=== PATIENT | female | born 1985 | race Caucasian/White ===

== ENCOUNTER 2018-11-10 08:53 | Outpatient (CLI) | payer OTHER ==
[2018-11-10 10:27] LABS: ADD UMIC YES; UR AMORPHOUS CRYSTAL FEW /HPF (NONE SEEN); UR ASCORBIC ACID NEGATIVE (NEGATIVE); UR BACTERIA FEW /HPF (NONE SEEN); UR BILIRUBIN (Dip) NEGATIVE (NEGATIVE); UR BLOOD (Dip) 2+ mg/dL (NEGATIVE); UR CLARITY CLOUDY (CLEAR); UR COLOR YELLOW (YELLOW); UR GLUCOSE (Dip) NEGATIVE (NEGATIVE); UR KETONES (Dip) 1+ mg/dL (NEGATIVE); UR LEUKOCYTE ESTERASE (Dip) NEGATIVE Leu/ul (NEGATIVE); UR MUCUS FEW /HPF (NONE SEEN); UR NITRITE (Dip) NEGATIVE (NEGATIVE); UR RBC 1 /HPF (0-5); UR SPECIFIC GRAVITY (Dip) 1.016 (1.003-1.030); UR SQUAMOUS EPITHELIAL CELL FEW /HPF (FEW); UR TOTAL PROTEIN (Dip) NEGATIVE (NEGATIVE); UR UROBILINOGEN (Dip) NEGATIVE (NEGATIVE); UR WBC 3 /HPF (0-5)
[2018-11-10 10:33] LABS: ADD MAN DIFF? NO
[2018-11-10 10:34] LABS: WHITE BLOOD COUNT 8.6 10^3/ul (4.8-10.8)
[2018-11-10 10:34] LABS: BASOPHILS % 0.3 % (0.0-2.0); EOSINOPHILS % 0.2 % (0.0-7.0); HEMATOCRIT 36.5 % (37.0-47.0); HEMOGLOBIN 12.2 g/dl (12.0-16.0); LYMPHOCYTES # 1.5 10^3/ul (0.8-2.9); LYMPHOCYTES % 17.4 % (15.0-51.0); MEAN CORPUSCULAR HGB CONC 33.4 g/dl (32.0-37.0); MEAN CORPUSCULAR VOLUME 89.7 fl (82.0-101.0); MEAN PLATELET VOLUME 9.1 fl (7.4-10.4); MONOCYTE # 0.6 10^3/ul (0.3-0.9); NEUTROPHIL # 6.4 10^3/ul (1.6-7.5); NEUTROPHILS % 74.6 % (39.0-77.0); PLATELET COUNT 268 10^3/UL (140-415); RED BLOOD COUNT 4.07 10^6/ul (4.20-5.40); RED CELL DISTRIBUTION WIDTH 12.8 % (11.5-14.5)
== END 2018-11-10 16:30 | disposition home or self-care (01) ==
LOC: OBT 08:53 → L-D 08:55 → OBT 16:30
DX: O26.853 Spotting complicating pregnancy, third trimester (principal); O09.513 Supervision of elderly primigravida, third trimester; Z3A.30 30 weeks gestation of pregnancy
CPT/HCPCS: 76817; 76818; 81001; 85025; 86850; 86900; 86901; 87070; 87210; 87591

== ENCOUNTER 2018-11-10 19:41 | Outpatient (CLI) | payer OTHER ==
[2018-11-25 17:40] LABS: ADD UMIC YES; UR ASCORBIC ACID NEGATIVE (NEGATIVE); UR BILIRUBIN (Dip) NEGATIVE (NEGATIVE); UR BLOOD (Dip) 2+ mg/dL (NEGATIVE); UR CLARITY SLIGHTLY CLOUDY (CLEAR); UR COLOR YELLOW (YELLOW); UR GLUCOSE (Dip) NEGATIVE (NEGATIVE); UR KETONES (Dip) NEGATIVE (NEGATIVE); UR LEUKOCYTE ESTERASE (Dip) TRACE Leu/ul (NEGATIVE); UR NITRITE (Dip) NEGATIVE (NEGATIVE); UR RBC 1 /HPF (0-5); UR SPECIFIC GRAVITY (Dip) 1.016 (1.003-1.030); UR SQUAMOUS EPITHELIAL CELL FEW /HPF (FEW); UR TOTAL PROTEIN (Dip) NEGATIVE (NEGATIVE); UR UROBILINOGEN (Dip) NEGATIVE (NEGATIVE); UR WBC 5 /HPF (0-5)
== END 2018-11-25 18:45 | disposition home or self-care (01) ==
LOC: OBT 19:41 → L-D 11-25 15:29 → OBT 11-25 18:45
DX: O26.853 Spotting complicating pregnancy, third trimester (principal); O47.03 False labor before 37 completed weeks of gestation, third trimester; O26.893 Other specified pregnancy related conditions, third trimester; R10.2 Pelvic and perineal pain; Z3A.32 32 weeks gestation of pregnancy
CPT/HCPCS: 76817; 76818; 81001; 87086

== ENCOUNTER 2018-12-07 09:34 | Inpatient (IN) | payer OTHER ==
[2018-12-07 10:58] LABS: ADD UMIC YES; UR ASCORBIC ACID NEGATIVE (NEGATIVE); UR BACTERIA FEW /HPF (NONE SEEN); UR BILIRUBIN (Dip) NEGATIVE (NEGATIVE); UR BLOOD (Dip) 3+ mg/dL (NEGATIVE); UR CLARITY SLIGHTLY CLOUDY (CLEAR); UR COLOR YELLOW (YELLOW); UR GLUCOSE (Dip) NEGATIVE (NEGATIVE); UR KETONES (Dip) 1+ mg/dL (NEGATIVE); UR LEUKOCYTE ESTERASE (Dip) TRACE Leu/ul (NEGATIVE); UR MUCUS FEW /HPF (NONE SEEN); UR NITRITE (Dip) NEGATIVE (NEGATIVE); UR RBC 3 /HPF (0-5); UR SPECIFIC GRAVITY (Dip) 1.017 (1.003-1.030); UR SQUAMOUS EPITHELIAL CELL FEW /HPF (FEW); UR TOTAL PROTEIN (Dip) 1+ mg/dl (NEGATIVE); UR UROBILINOGEN (Dip) NEGATIVE (NEGATIVE); UR WBC 11 /HPF (0-5)
[2018-12-07 12:09] LABS: RUPTURE FETAL MEMBRANES NEGATIVE (NEGATIVE)
[2018-12-07] MEDS ORDERED: ACETAMINOPHEN 325 MG TAB PO (13:00)
[2018-12-07] MEDS: LACTATED RINGER'S 1,000 ML IV ×2 (19:30→20:19)
[2018-12-07] MEDS: PRENATAL VITAMIN PO (20:18)
[2018-12-08] MEDS: LACTATED RINGER'S 1,000 ML IV ×2 (03:38→11:07)
[2018-12-08] MEDS: PRENATAL VITAMIN PO (09:16)
== END 2018-12-08 13:45 | disposition home or self-care (01) | DRG 833 ==
LOC: OBT 09:34 → L-D 09:35 → OBT 11:12 → L-D 11:12
DX: O46.93 Antepartum hemorrhage, unspecified, third trimester (principal); O09.523 Supervision of elderly multigravida, third trimester; Z3A.34 34 weeks gestation of pregnancy; R51 Headache
CPT/HCPCS: 76815; 76816; 76818; 81001; 84112; 85460

== ENCOUNTER 2018-12-12 13:22 | Inpatient (IN) | payer OTHER ==
[2018-12-12 17:02] LABS: ADD MAN DIFF? NO
[2018-12-12 17:06] LABS: WHITE BLOOD COUNT 9.5 10^3/ul (4.8-10.8)
[2018-12-12 17:06] LABS: BASOPHILS % 0.2 % (0.0-2.0); EOSINOPHILS % 0.4 % (0.0-7.0); HEMATOCRIT 34.6 % (37.0-47.0); HEMOGLOBIN 11.5 g/dl (12.0-16.0); LYMPHOCYTES # 1.6 10^3/ul (0.8-2.9); LYMPHOCYTES % 16.9 % (15.0-51.0); MEAN CORPUSCULAR HEMOGLOBIN 29.8 pg (29.0-33.0); MEAN CORPUSCULAR HGB CONC 33.2 g/dl (32.0-37.0); MEAN CORPUSCULAR VOLUME 89.6 fl (82.0-101.0); MEAN PLATELET VOLUME 9.1 fl (7.4-10.4); MONOCYTE # 0.8 10^3/ul (0.3-0.9); MONOCYTES % 8.1 % (0.0-11.0); PLATELET COUNT 271 10^3/UL (140-415); RED BLOOD COUNT 3.86 10^6/ul (4.20-5.40)
[2018-12-12] MEDS: BETAMET NA PHOS/AC(6 MG/ML) 2 ML INJ SYG IM (17:10)
[2018-12-12 17:25] LABS: INR 0.93; PROTIME 12.6 Sec (11.9-14.9)
[2018-12-12 17:26] LABS: PARTIAL THROMBOPLASTIN TIME 24.3 Sec (23.0-35.0)
[2018-12-12] MEDS: LACTATED RINGER'S 1,000 ML IV ×2 (17:45→21:28)
[2018-12-12 20:43] LABS: ADD UMIC YES; UR ASCORBIC ACID NEGATIVE (NEGATIVE); UR BACTERIA FEW /HPF (NONE SEEN); UR BILIRUBIN (Dip) NEGATIVE (NEGATIVE); UR BLOOD (Dip) 1+ mg/dL (NEGATIVE); UR CLARITY CLEAR (CLEAR); UR COLOR YELLOW (YELLOW); UR GLUCOSE (Dip) 1+ mg/dL (NEGATIVE); UR KETONES (Dip) 1+ mg/dL (NEGATIVE); UR LEUKOCYTE ESTERASE (Dip) TRACE Leu/ul (NEGATIVE); UR NITRITE (Dip) NEGATIVE (NEGATIVE); UR RBC 0 /HPF (0-5); UR SPECIFIC GRAVITY (Dip) 1.008 (1.003-1.030); UR SQUAMOUS EPITHELIAL CELL FEW /HPF (FEW); UR TOTAL PROTEIN (Dip) NEGATIVE (NEGATIVE); UR UROBILINOGEN (Dip) 1+ mg/dL (NEGATIVE); UR WBC 3 /HPF (0-5)
[2018-12-12] MEDS: PRENATAL VITAMIN PO (22:26)
[2018-12-13] MEDS: LACTATED RINGER'S 1,000 ML IV ×3 (05:11→21:52)
[2018-12-13] MEDS: PRENATAL VITAMIN PO (09:31)
[2018-12-13] MEDS: BETAMET NA PHOS/AC(6 MG/ML) 2 ML INJ SYG IM (16:57)
[2018-12-13 19:27] LABS: RAPID PLASMA REAGIN NONREACTIVE (NR)
[2018-12-14] MEDS: LACTATED RINGER'S 1,000 ML IV ×2 (05:30→15:19)
[2018-12-14] MEDS: PRENATAL VITAMIN PO (09:09)
[2018-12-15] MEDS: LACTATED RINGER'S 1,000 ML IV ×3 (00:16→19:34)
[2018-12-15] MEDS ORDERED: OXYTOCIN 30 UNITS/LR 500 ML IV ×3 (07:00)
[2018-12-15] MEDS ORDERED: CARBOPROST 250 MCG INJ IM (07:00)
[2018-12-15] MEDS ORDERED: METHYLERGONOVINE 0.2 MG INJ IM (07:00)
[2018-12-15] MEDS ORDERED: BUTORPHANOL 2 MG INJ IV (07:00)
[2018-12-15] MEDS ORDERED: MISOPROSTOL 200 MCG TAB PR (07:00)
[2018-12-15] MEDS ORDERED: LIDOCAINE 1% (MPF) 30 ML INJ INJ (07:00)
[2018-12-15] MEDS: AMPICILLIN 2 GM/NS (PMX) 100 ML IV (08:13)
[2018-12-15] MEDS: MISOPROSTOL 25 MCG CAPSULE VAG ×3 (08:15→16:35)
[2018-12-15 10:02] LABS: ADD MAN DIFF? NO
[2018-12-15 10:09] LABS: WHITE BLOOD COUNT 9.6 10^3/ul (4.8-10.8)
[2018-12-15 10:09] LABS: BASOPHILS % 0.3 % (0.0-2.0); EOSINOPHILS % 0.3 % (0.0-7.0); HEMATOCRIT 34.1 % (37.0-47.0); HEMOGLOBIN 10.9 g/dl (12.0-16.0); LYMPHOCYTES # 2.1 10^3/ul (0.8-2.9); LYMPHOCYTES % 21.4 % (15.0-51.0); MEAN CORPUSCULAR HEMOGLOBIN 29.7 pg (29.0-33.0); MEAN CORPUSCULAR VOLUME 92.9 fl (82.0-101.0); MONOCYTE # 0.9 10^3/ul (0.3-0.9); MONOCYTES % 9.4 % (0.0-11.0); NEUTROPHIL # 6.5 10^3/ul (1.6-7.5); NEUTROPHILS % 67.1 % (39.0-77.0); NUCLEATED RED BLOOD CELLS% 0.2 /100WBC (0.0-0.0); PLATELET COUNT 256 10^3/UL (140-415); RED BLOOD COUNT 3.67 10^6/ul (4.20-5.40); RED CELL DISTRIBUTION WIDTH 13.5 % (11.5-14.5)
[2018-12-15 10:29] LABS: INR 0.89; PROTIME 12.1 Sec (11.9-14.9); PT RATIO 0.9
[2018-12-15 10:30] LABS: PARTIAL THROMBOPLASTIN TIME 23.5 Sec (23.0-35.0)
[2018-12-15] MEDS: AMPICILLIN 1 GM/NS (PMX) 50 ML IV ×3 (12:18→21:07)
[2018-12-15 18:23] LABS: HEPATITIS B SURFACE ANTIGEN NEGATIVE (NEGATIVE)
[2018-12-15 22:04] LABS: RAPID PLASMA REAGIN NONREACTIVE (NR)
[2018-12-15] MEDS: MISOPROSTOL 50 MCG CAPSULE PO (22:13)
[2018-12-16] MEDS: AMPICILLIN 1 GM/NS (PMX) 50 ML IV ×3 (01:13→09:00)
[2018-12-16] MEDS: MISOPROSTOL 50 MCG CAPSULE PO (02:56)
[2018-12-16] MEDS: LACTATED RINGER'S 1,000 ML IV ×2 (04:35→19:30)
[2018-12-16] MEDS ORDERED: CARBOPROST 250 MCG INJ IM ×2 (11:00→17:00)
[2018-12-16] MEDS ORDERED: METHYLERGONOVINE 0.2 MG INJ IM ×2 (11:00→17:00)
[2018-12-16] MEDS ORDERED: OXYTOCIN 30 UNITS/LR 500 ML IV ×3 (11:00→17:00)
[2018-12-16] MEDS ORDERED: CEFAZOLIN 2 GM/50 ML (PMX) 50 ML IVPB (11:00)
[2018-12-16] MEDS ORDERED: MISOPROSTOL 200 MCG TAB PR ×2 (11:00→17:00)
[2018-12-16] MEDS ORDERED: CITRIC ACID/NA CITRATE 30 ML CUP (14:34)
[2018-12-16] MEDS: CITRIC ACID/NA CITRATE 30 ML CUP PO (16:13)
[2018-12-16] MEDS ORDERED: ONDANSETRON 4 MG INJ (16:55)
[2018-12-16] MEDS ORDERED: morphine SULFATE/PF (10 MG/10 ML) INJ (16:55)
[2018-12-16] MEDS ORDERED: KETOROLAC 30 MG INJ (16:55)
[2018-12-16] MEDS ORDERED: METOCLOPRAMIDE 10 MG INJ (16:55)
[2018-12-16] MEDS ORDERED: KETOROLAC 30 MG INJ IV (17:00)
[2018-12-16] MEDS ORDERED: LANOLIN HPA 1 PKT TOP (17:00)
[2018-12-16] MEDS ORDERED: NACL 0.9% 3 ML SYG IV (17:00)
[2018-12-16] MEDS ORDERED: IBUPROFEN 600 MG TAB PO (17:00)
[2018-12-16] MEDS ORDERED: FENTAnyl 50 MCG/ML VIAL (17:38)
[2018-12-16] MEDS ORDERED: DIPHENHYDRAMINE 50 MG INJ IV ×2 (18:00→18:30)
[2018-12-16] MEDS ORDERED: morphine 2 MG INJ IV ×4 (18:00→18:30)
[2018-12-16] MEDS ORDERED: ONDANSETRON 4 MG INJ IV ×2 (18:00→18:30)
[2018-12-16] MEDS ORDERED: NALOXONE (0.4 MG/ML) INJ IV (18:30)
[2018-12-16] MEDS: morphine 2 MG INJ IV ×2 (18:37→22:01)
[2018-12-16] MEDS: OXYTOCIN 30 UNITS/LR 500 ML IV (19:51)
[2018-12-16] MEDS: CEFAZOLIN 1 GM/50 ML (PMX) 50 ML IVPB (20:58)
[2018-12-17] MEDS ORDERED: ONDANSETRON 4 MG INJ IV
[2018-12-17] MEDS ORDERED: KETOROLAC 30 MG INJ IV
[2018-12-17] MEDS ORDERED: NALOXONE (0.4 MG/ML) INJ IV
[2018-12-17] MEDS ORDERED: morphine 2 MG INJ IV ×3
[2018-12-17] MEDS ORDERED: DIPHENHYDRAMINE 50 MG INJ IV
[2018-12-17] MEDS: KETOROLAC 30 MG INJ IV ×3 (00:50→16:36)
[2018-12-17] MEDS: LACTATED RINGER'S 1,000 ML IV ×3 (02:24→11:41)
[2018-12-17] MEDS: CEFAZOLIN 1 GM/50 ML (PMX) 50 ML IVPB ×2 (05:10→13:04)
[2018-12-17] MEDS: morphine 2 MG INJ IV ×2 (06:04→13:06)
[2018-12-17 06:57] LABS: ADD MAN DIFF? NO
[2018-12-17 07:04] LABS: WHITE BLOOD COUNT 9.9 10^3/ul (4.8-10.8)
[2018-12-17 07:04] LABS: BASOPHILS % 0.2 % (0.0-2.0); EOSINOPHILS % 0.2 % (0.0-7.0); HEMATOCRIT 32.9 % (37.0-47.0); HEMOGLOBIN 10.7 g/dl (12.0-16.0); LYMPHOCYTES # 1.2 10^3/ul (0.8-2.9); LYMPHOCYTES % 12.4 % (15.0-51.0); MEAN CORPUSCULAR HEMOGLOBIN 29.6 pg (29.0-33.0); MEAN CORPUSCULAR HGB CONC 32.5 g/dl (32.0-37.0); MEAN CORPUSCULAR VOLUME 90.9 fl (82.0-101.0); MEAN PLATELET VOLUME 9.3 fl (7.4-10.4); MONOCYTES % 10.2 % (0.0-11.0); NEUTROPHIL # 7.6 10^3/ul (1.6-7.5); NEUTROPHILS % 76.4 % (39.0-77.0); PLATELET COUNT 253 10^3/UL (140-415); RED BLOOD COUNT 3.62 10^6/ul (4.20-5.40); RED CELL DISTRIBUTION WIDTH 13.2 % (11.5-14.5)
[2018-12-17] MEDS: HYDROCODONE/APAP (5/325) TAB PO (21:46)
[2018-12-18] MEDS: IBUPROFEN 600 MG TAB PO (00:52)
[2018-12-18] MEDS: HYDROCODONE/APAP (5/325) TAB PO ×3 (11:34→22:18)
[2018-12-19] MEDS: HYDROCODONE/APAP (5/325) TAB PO ×3 (01:58→12:12)
[2018-12-19] MEDS: DIPHTH/TET/ACEL PERTUSS (ADULT) 0.5 ML VIAL IM* (09:09)
[2018-12-19] MEDS: MEASLES,MUMPS,RUBELLA VACCINE INJ SC* (12:13)
== END 2018-12-19 13:40 | disposition home or self-care (01) | DRG 787 ==
LOC: OBT 13:22 → L-D 12-15 06:22 → PP1 12-13 13:56 → L-D 12-15 20:01 → PP1 12-16 20:33 → L-D 13:38 → OBT 16:30 → L-D 16:30 → PP1 21:02
PROVIDERS: Obstetrics & Gynecology
PROC: 10D00Z1 Extraction of Products of Conception, Low, Open Approach (ICD-10-PCS; principal; 2018-12-17)
DX: O60.13X0 Preterm labor second trimester with preterm delivery third trimester, not applicable or unspecified (principal); O41.03X0 Oligohydramnios, third trimester, not applicable or unspecified; O76 Abnormality in fetal heart rate and rhythm complicating labor and delivery; O62.0 Primary inadequate contractions; Z3A.35 35 weeks gestation of pregnancy; Z37.0 Single live birth
CPT/HCPCS: 76815; 76816; 76818; 76820; 81001; 85025; 85610; 85730; 86592; 86850; 86900; 86901; 87340; 90715; 99464